=== PATIENT | female | born 2000 | race Caucasian/White ===

== ENCOUNTER 2020-08-16 23:58 | Inpatient (IN) | payer OTHER, SELFPAY ==
[2020-08-17] MEDS ORDERED: Ondansetron PF 4 MG/2 ML Vial ONE (00:09)
[2020-08-17] MEDS ORDERED: Morphine 4 MG/ML VIAL ONE (00:09)
[2020-08-17 00:23] LABS: #Basophils 0.1 thou/uL (0.0-0.2); #Eosinphils 0.1 thou/uL (0.0-0.7); #Lymphocytes 2.5 thou/uL (1.20-3.40); #Monocytes 0.8 thou/uL (0.11-0.59); #Neutrophils 13.8 thou/uL (1.40-6.50); %Basophils 0.3 % (0.0-1.0); %Eosinophils 0.4 % (0.0-10.0); %Lymphocytes 14.3 % (21.0-51.0); %Monocytes 4.7 % (0.0-10.0); %Neutrophils 80.3 % (42.0-75.0); Hemoglobin 7.2 g/dL (12.0-16.0); Mean Corpuscular HGB CONC 33.4 g/dL (32.0-36.0); Mean Corpuscular Volume 92.7 fL (78.0-98.0); Mean Platelet Volume 9.2 fL (7.4-10.4); Platelet Count 171 thou/uL (130-400); Red Blood Cell (RBC) Count 2.31 mill/uL (4.20-5.40); White Blood Cell (WBC) Count 17.1 thou/uL (4.8-10.8)
[2020-08-17] MEDS ORDERED: Ketamine 50 MG/ML (10ML VIAL) ONE (00:30)
[2020-08-17 00:40] LABS: BHCG - Serum Negative (NEGATIVE); Pregs Control Background? CLEAR/WHITE (CLR/WHITE); Pregs Control Bar Appear? YES (CONTROL BAR)
[2020-08-17 00:44] LABS: ALT (SGPT) 440 U/L (8-55); AST (SGOT) 533 U/L (5-34); Albumin 1.8 g/dL (3.5-5.0); Alkaline Phosphatase 26 U/L (40-110); Anion Gap 10 mmol/L (10-20); BUN (Urea Nitrogen) 11 mg/dL (7.0-18.7); Bilirubin, Total Less than 0.2 mg/dL (0.2-1.2); Calc. Creatinine Clearance 0 mL/min (70-130); Carbon Dioxide 11 mmol/L (22-29); Chloride 125 mmol/L (98-107); Estimated GFR-MDRD Greater than 90; Globulin 1.2 g/dL (2.4-3.5); Glucose 83 mg/dL (70-105); Lipase 128 U/L (8-78); Sodium 144 mmol/L (136-145)
[2020-08-17 00:49] LABS: Calcium 4.2 mg/dL (7.8-10.44); Potassium 1.7 mmol/L (3.5-5.1)
[2020-08-17] MEDS ORDERED: Ondansetron ODT 4 MG TAB PO PRN (04:22)
[2020-08-17] MEDS ORDERED: Morphine 2 MG/ML VIAL SLOW IVP PRN ×2 (04:22→21:55)
[2020-08-17] MEDS ORDERED: Dextrose 50% Abboject 50 ML SYRINGE SLOW IVP PRN (04:22)
[2020-08-17] MEDS ORDERED: hydrALAZINE 20 MG/ML VIAL SLOW IVP PRN (04:22)
[2020-08-17] MEDS ORDERED: Dextrose 5% in Water 1,000 ML IV PRN (04:22)
[2020-08-17 04:28] VITALS: BMI 22.4
[2020-08-17] MEDS: Morphine 4 MG/ML VIAL SLOW IVP PRN ×3 (04:29→10:25)
[2020-08-17] MEDS: Sodium Chloride 0.9% 1,000 ML IV SCH ×2 (04:30→14:19)
[2020-08-17 05:17] LABS: Anion Gap 15 mmol/L (10-20); BUN (Urea Nitrogen) 18 mg/dL (7.0-18.7); Calc. Creatinine Clearance 99 mL/min (70-130); Calcium 8.8 mg/dL (7.8-10.44); Carbon Dioxide 22 mmol/L (22-29); Chloride 107 mmol/L (98-107); Estimated GFR-MDRD 88; Glucose 96 mg/dL (70-105); Magnesium 1.9 mg/dL (1.6-2.6); Phosphorus 4.1 mg/dL (2.3-4.7); Potassium 3.8 mmol/L (3.5-5.1); Sodium 140 mmol/L (136-145)
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
[2020-08-17 05:44] LABS: Band 14 % (5-11); Hemoglobin 12.2 g/dL (12.0-16.0); Lymphocytes 7 % (21-51); MDiff Complete? YES; Mean Corpuscular HGB CONC 32.8 g/dL (32.0-36.0); Mean Corpuscular Hemoglobin 30.3 pg (27.0-31.0); Mean Corpuscular Volume 92.2 fL (78.0-98.0); Mean Platelet Volume 9.8 fL (7.4-10.4); Monocytes 7 % (0-10); Neutrophil 71 % (42-75); Platelet Count 254 thou/uL (130-400); Platelet Morphology Comment Appears Adequate; RBC Distribution Width 12.2 % (11.5-14.5); RBC Morphology Normal; Red Blood Cell (RBC) Count 4.04 mill/uL (4.20-5.40); White Blood Cell (WBC) Count 30.4 thou/uL (4.8-10.8)
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
[2020-08-17 07:03] LABS: Hemoglobin 11.1 g/dL (12.0-16.0)
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
[2020-08-17 07:19] LABS: Lactic Acid 2.5 mmol/L (0.5-2.2)
[2020-08-17 07:22] LABS: Lipase 143 U/L (8-78)
[2020-08-17 07:23] LABS: CK (CPK) 842 U/L (29-168)
--- NOTE | 2020-08-17 10:15 | RAD ---
PORTABLE CHEST: 08/17/20 PROVIDED CLINICAL HISTORY: Pulmonary contusion. CORRELATION: CT examination performed on 08/17/2020 at 12:21 a.m. FINDINGS: The foci of parenchymal contusion described on prior CT are not radiographically apparent. The heart and mediastinum appear normal. There is no pleural fluid or radiographically apparent pneumothorax. IMPRESSION: No radiographic evidence for an acute cardiopulmonary process. POS: PACO
[2020-08-17 10:23] LABS: #Lymphocytes 0.8 thou/uL (1.20-3.40); #Monocytes 1.4 thou/uL (0.11-0.59); #Neutrophils 14.8 thou/uL (1.40-6.50); %Basophils 0.1 % (0.0-1.0); %Eosinophils 0.2 % (0.0-10.0); %Lymphocytes 4.7 % (21.0-51.0); %Monocytes 8.1 % (0.0-10.0); %Neutrophils 86.9 % (42.0-75.0); Hemoglobin 10.8 g/dL (12.0-16.0); Mean Corpuscular HGB CONC 34.1 g/dL (32.0-36.0); Mean Corpuscular Volume 90.9 fL (78.0-98.0); Mean Platelet Volume 9.3 fL (7.4-10.4); Platelet Count 192 thou/uL (130-400); RBC Distribution Width 12.1 % (11.5-14.5); Red Blood Cell (RBC) Count 3.47 mill/uL (4.20-5.40)
[2020-08-17] MEDS ORDERED: Bacteriostatic Normal Saline 30 ML VIAL ONE (10:26)
[2020-08-17] MEDS ORDERED: Sodium Chloride 0.9% 15 ML NEB ONE (10:26)
[2020-08-17] MEDS: Famotidine/PF 20 mg/2ml Vial SLOW IVP SCH ×2 (10:26→19:43)
[2020-08-17] MEDS: Ondansetron PF 4 MG/2 ML Vial IVP PRN ×2 (12:41→21:31)
[2020-08-17 12:43] LABS: Bilirubin Negative (Negative); Blood, Urine 3+ (Negative); Clarity Clear (Clear); Glucose, Urine (Dipstick) Normal (Negative); Ketone, Urine Negative (Negative); Leukocyte Negative Leu/uL (Negative); Nitrite Negative (Negative); Protein, Urine (Dipstick) 30 mg/dL (Neg-Trace); RBC/HPF 21-50 HPF (0-3); Squamous Epithelial None Seen HPF (0-3); Urobilinogen Normal mg/dL (Less than 2); WBC/HPF 0-3 HPF (0-3)
[2020-08-17 12:45] LABS: Bacteria/HPF Rare-Few HPF (None Seen); Specific Gravity, Urine 1.044 (1.002-1.036)
[2020-08-17 12:47] LABS: Medtox Control Line Valid? VALID (VALID); Medtox Reader # READER 4
[2020-08-17 12:49] LABS: Amphetamine Not Detected (NotDetected); Barbiturates Screen Not Detected (NotDetected); Benzodiazepine Screen Not Detected (NotDetected); Cocaine Metabolite Screen Not Detected (NotDetected); Methadone Not Detected (NotDetected); Methamphetamine Not Detected (NotDetected); Opiate Screen Detected (NotDetected); Oxycodone Screen Not Detected (NotDetected); Phencyclidine (PCP) Not Detected (NotDetected); THC/Cannabinoid Screen Detected (NotDetected); Tricyclic Screen Not Detected (NotDetected)
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
[2020-08-17] MEDS ORDERED: Acetaminophen 500 MG TAB PO PRN ×2 (13:49→21:51)
[2020-08-17] MEDS ORDERED: traMADol HCl 50 MG TAB PO PRN ×2 (13:49)
[2020-08-17] MEDS ORDERED: Cyclobenzaprine 10 MG TAB PO PRN (13:49)
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
[2020-08-17 14:35] LABS: INR-International Normal Ratio 1.2; Prothrombin Time 15.9 sec (12.0-14.7)
[2020-08-17 14:36] LABS: PTT 33.4 sec (22.9-36.1)
[2020-08-17] MEDS ORDERED: Iopamidol-370 76% 500 ML 1 ML ONE (15:18)
--- NOTE | 2020-08-17 15:59 | RAD ---
LEFT ANKLE RADIOGRAPHS THREE VIEWS: 08/17/20 PROVIDED CLINICAL HISTORY: Pain status post injury. FINDINGS: There is no evidence for fracture or other acute osseous abnormality. If there is persistent clinical concern, conservative management and follow-up imaging advised. IMPRESSION: As above. POS: PACO
--- NOTE | 2020-08-17 16:12 | RAD ---
LEFT FORELEG RADIOGRAPHS TWO VIEWS: 08/17/20 PROVIDED CLINICAL HISTORY: Pain status post injury. FINDINGS: Postoperative changes of ACL reconstruction are demonstrated. There is no evidence of fracture or oth er acute osseous abnormality. If there is persistent clinical concern, conservative management and fo llow-up imaging are advised. IMPRESSION: As above. POS: PACO
[2020-08-17] MEDS ORDERED: FLU VACC QS2020-21(6MOS UP)/PF 60 MCG/0.5 ML SYRINGE IM ONE (21:00)
[2020-08-17] MEDS: Ibuprofen 800 MG TAB PO PRN (21:30)
[2020-08-17 22:18] LABS: Hemoglobin 9.4 g/dL (12.0-16.0)
[2020-08-17] MEDS: traMADol HCl 50 MG TAB PO SCH (22:59)
[2020-08-18] MEDS: traMADol HCl 50 MG TAB PO SCH ×4 (04:06→21:29)
[2020-08-18 04:33] LABS: #Eosinphils 0.1 thou/uL (0.0-0.7); #Lymphocytes 1.7 thou/uL (1.20-3.40); #Monocytes 1.1 thou/uL (0.11-0.59); #Neutrophils 7.6 thou/uL (1.40-6.50); %Basophils 0.2 % (0.0-1.0); %Lymphocytes 16.2 % (21.0-51.0); %Monocytes 10.7 % (0.0-10.0); %Neutrophils 71.9 % (42.0-75.0); Mean Corpuscular Hemoglobin 30.5 pg (27.0-31.0); Mean Corpuscular Volume 92.3 fL (78.0-98.0); Mean Platelet Volume 9.6 fL (7.4-10.4); Platelet Count 154 thou/uL (130-400); RBC Distribution Width 12.2 % (11.5-14.5); Red Blood Cell (RBC) Count 3.27 mill/uL (4.20-5.40); White Blood Cell (WBC) Count 10.5 thou/uL (4.8-10.8)
[2020-08-18 05:00] LABS: Anion Gap 11 mmol/L (10-20); BUN (Urea Nitrogen) 11 mg/dL (7.0-18.7); Calc. Creatinine Clearance 110 mL/min (70-130); Calcium 8.3 mg/dL (7.8-10.44); Carbon Dioxide 23 mmol/L (22-29); Chloride 109 mmol/L (98-107); Estimated GFR-MDRD Greater than 90; Glucose 77 mg/dL (70-105); Phosphorus 2.2 mg/dL (2.3-4.7); Potassium 3.9 mmol/L (3.5-5.1); Sodium 139 mmol/L (136-145)
[2020-08-18] MEDS ORDERED: FLU VACC QS2020-21(6MOS UP)/PF 60 MCG/0.5 ML SYRINGE IM ONE (09:00)
[2020-08-18] MEDS: Senokot S 8.6-50 MG TAB PO SCH ×2 (09:05→20:51)
[2020-08-18] MEDS: Famotidine/PF 20 mg/2ml Vial SLOW IVP SCH ×2 (09:05→20:47)
[2020-08-18] MEDS: Polyethylene Glycol 3350 17 GM Packet PO SCH (09:05)
[2020-08-18 09:14] LABS: Hemoglobin 9.9 g/dL (12.0-16.0)
[2020-08-18] MEDS: traMADol HCl 50 MG TAB PO PRN (10:43)
[2020-08-18 16:34] LABS: Hemoglobin 9.9 g/dL (12.0-16.0)
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
[2020-08-18] MEDS: PHOS-NAK 1 PKT PACK PO SCH (18:44)
[2020-08-18] MEDS ORDERED: Potassium Phosphate 30 MMOL in Sodium Chloride 0.9% 250 ML 250 ML IVPB ONE (19:00)
[2020-08-19 00:12] LABS: SARS-CoV-2 MS2 Positive; SARS-CoV-2 N Gene Negative; SARS-CoV-2 S Gene Negative; SARS-CoV-2 by NAA Not Detected (Not Detected); SARS-CoV-2 orf1ab Negative
[2020-08-19] MEDS: traMADol HCl 50 MG TAB PO SCH ×4 (04:14→21:50)
[2020-08-19 05:49] LABS: Anion Gap 13 mmol/L (10-20); BUN (Urea Nitrogen) 7 mg/dL (7.0-18.7); CK (CPK) 534 U/L (29-168); Calc. Creatinine Clearance 118 mL/min (70-130); Calcium 8.4 mg/dL (7.8-10.44); Carbon Dioxide 22 mmol/L (22-29); Chloride 106 mmol/L (98-107); Estimated GFR-MDRD Greater than 90; Glucose 83 mg/dL (70-105); Phosphorus 3.2 mg/dL (2.3-4.7); Potassium 3.9 mmol/L (3.5-5.1); Sodium 137 mmol/L (136-145)
[2020-08-19] MEDS: Polyethylene Glycol 3350 17 GM Packet PO SCH (09:59)
[2020-08-19] MEDS: Enoxaparin Sodium 40 MG/0.4 ML SYRINGE SC SCH (09:59)
[2020-08-19] MEDS: Senokot S 8.6-50 MG TAB PO SCH ×2 (10:00→21:49)
[2020-08-19] MEDS: Famotidine/PF 20 mg/2ml Vial SLOW IVP SCH ×2 (10:00→21:50)
[2020-08-19] MEDS: traMADol HCl 50 MG TAB PO PRN (10:03)
[2020-08-19] MEDS: Ondansetron PF 4 MG/2 ML Vial IVP PRN (10:58)
[2020-08-19] MEDS ORDERED: Acetaminophen 325 MG TAB PO SCH (15:00)
[2020-08-19] MEDS ORDERED: traMADol HCl 50 MG TAB PO SCH (15:00)
[2020-08-19] MEDS: Acetaminophen 325 MG TAB PO SCH ×2 (18:17→23:35)
[2020-08-19] MEDS: Acetaminophen/Codeine 30-300mg Tablet PO SCH ×2 (18:18→23:35)
[2020-08-19] MEDS: PHOS-NAK 1 PKT PACK PO SCH (18:18)
[2020-08-20] MEDS: traMADol HCl 50 MG TAB PO SCH ×4 (03:12→20:57)
[2020-08-20] MEDS: Acetaminophen/Codeine 30-300mg Tablet PO SCH ×3 (05:17→17:46)
[2020-08-20] MEDS: Acetaminophen 325 MG TAB PO SCH ×4 (05:17→23:20)
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
[2020-08-20] MEDS: Ibuprofen 800 MG TAB PO PRN (08:45)
[2020-08-20] MEDS: Senokot S 8.6-50 MG TAB PO SCH ×2 (08:48→20:50)
[2020-08-20] MEDS: Enoxaparin Sodium 40 MG/0.4 ML SYRINGE SC SCH (08:49)
[2020-08-20] MEDS: Famotidine/PF 20 mg/2ml Vial SLOW IVP SCH (08:51)
[2020-08-20] MEDS: Polyethylene Glycol 3350 17 GM Packet PO SCH (08:54)
[2020-08-20] MEDS: Famotidine 20 MG TAB PO SCH ×2 (09:29→20:50)
[2020-08-20] MEDS: Ondansetron PF 4 MG/2 ML Vial IVP PRN ×2 (09:51→17:38)
[2020-08-20] MEDS: PHOS-NAK 1 PKT PACK PO SCH (20:50)
[2020-08-21] MEDS: Acetaminophen/Codeine 30-300mg Tablet PO SCH ×5 (00:27→23:18)
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
[2020-08-21] MEDS: traMADol HCl 50 MG TAB PO SCH ×4 (03:43→19:55)
[2020-08-21] MEDS: Acetaminophen 325 MG TAB PO SCH ×3 (05:59→17:19)
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
[2020-08-21] MEDS ORDERED: Scopolamine 1.5 mg/72 hour Patch TOP SCH (09:15)
[2020-08-21] MEDS: Enoxaparin Sodium 40 MG/0.4 ML SYRINGE SC SCH (09:28)
[2020-08-21] MEDS: Famotidine 20 MG TAB PO SCH ×2 (09:29→19:54)
[2020-08-21] MEDS: Senokot S 8.6-50 MG TAB PO SCH ×2 (09:29→19:54)
[2020-08-21] MEDS: Polyethylene Glycol 3350 17 GM Packet PO SCH (09:30)
[2020-08-21] MEDS ORDERED: traMADol HCl 50 MG TAB PO SCH (10:45)
[2020-08-21] MEDS: Gabapentin 100 MG CAP PO SCH ×2 (14:40→19:54)
[2020-08-22] MEDS: Acetaminophen 325 MG TAB PO SCH ×4 (00:15→18:04)
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
[2020-08-22] MEDS: traMADol HCl 50 MG TAB PO SCH ×4 (03:15→20:49)
[2020-08-22] MEDS: Acetaminophen/Codeine 30-300mg Tablet PO SCH ×2 (05:23→12:18)
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
[2020-08-22] MEDS: Senokot S 8.6-50 MG TAB PO SCH ×2 (09:02→20:50)
[2020-08-22] MEDS: Famotidine 20 MG TAB PO SCH ×2 (09:02→20:48)
[2020-08-22] MEDS: Polyethylene Glycol 3350 17 GM Packet PO SCH (09:03)
[2020-08-22] MEDS: Enoxaparin Sodium 40 MG/0.4 ML SYRINGE SC SCH (09:03)
[2020-08-22] MEDS: Gabapentin 100 MG CAP PO SCH ×3 (09:03→20:48)
[2020-08-22] MEDS ORDERED: Acetaminophen/Codeine 30-300mg Tablet PO PRN (16:31)
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
[2020-08-23] MEDS: Acetaminophen 325 MG TAB PO SCH ×3 (00:17→19:37)
[2020-08-23] MEDS: traMADol HCl 50 MG TAB PO SCH ×3 (03:39→19:36)
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
[2020-08-23] MEDS: Senokot S 8.6-50 MG TAB PO SCH (09:26)
[2020-08-23] MEDS: Gabapentin 100 MG CAP PO SCH ×2 (09:26→19:36)
[2020-08-23] MEDS: Enoxaparin Sodium 40 MG/0.4 ML SYRINGE SC SCH (09:27)
[2020-08-23] MEDS: Polyethylene Glycol 3350 17 GM Packet PO SCH (09:27)
[2020-08-23 16:38] VITALS: BP 109/65; TEMP 98.4
[2020-08-23] MEDS: Famotidine 20 MG TAB PO SCH (19:37)
== END 2020-08-23 18:45 | disposition home or self-care (01) | DRG 964 ==
LOC: ERS 23:58 → CCU 08-17 02:46 → SURG B 08-17 13:58
PROVIDERS: ADMIT Surgery; ATTEND Surgery
DX: S32.512A Fracture of superior rim of left pubis, initial encounter for closed fracture (principal); S36.113A Laceration of liver, unspecified degree, initial encounter; S06.0X9A Concussion with loss of consciousness of unspecified duration, initial encounter; S42.302A Unspecified fracture of shaft of humerus, left arm, initial encounter for closed fracture; S32.10XA Unspecified fracture of sacrum, initial encounter for closed fracture; J93.9 Pneumothorax, unspecified; S27.322A Contusion of lung, bilateral, initial encounter; Z96.652 Presence of left artificial knee joint; Z20.828 Contact with and (suspected) exposure to other viral communicable diseases; V89.2XXA Person injured in unspecified motor-vehicle accident, traffic, initial encounter
CPT/HCPCS: 29105; 36415; 36416; 70450; 71045; 71260; 72125; 74177; 80048; 80053; 80306; 81001; 82550; 83605; 83690; 83735; 84100; 84443; 84703; 85025; 85610; 85730; 86850; 86900; 86901; 87635; 93005; 94640; 96361; 96374; 96375; G0390; J1650; J2270; J2405; J7050; J7620; Q9967; S0028; U0003